=== PATIENT | male | born 1990 | race Caucasian/White ===

== ENCOUNTER 2022-05-23 15:41 | Emergency (ER) | payer BC, SELFPAY ==
[2022-05-23] MEDS ORDERED: Loperamide HCl 2 MG CAP ONE (16:25)
[2022-05-23] MEDS ORDERED: Ondansetron PF 4 MG/2 ML Vial ONE (16:25)
[2022-05-23 16:30] LABS: #Basophils 0.1 10x3/uL (0.0-0.2); #Monocytes 0.8 10x3/uL (0.0-1.1); #Neutrophils 12.4 10x3/uL (1.5-8.4); %Basophils 0.4 % (0.0-2.0); %Eosinophils 0.3 % (0.0-6.0); %Lymphocytes 3.9 % (18.0-47.0); %Monocytes 5.9 % (0.0-10.0); %Neutrophils 89.1 % (40.0-75.0); Hemoglobin 17.8 g/dL (13.5-17.5); Mean Corpuscular HGB CONC 35.2 g/dL (32.0-36.0); Mean Corpuscular Hemoglobin 32.3 pg (27.0-33.0); Mean Corpuscular Volume 91.8 fl (81.2-95.1); Mean Platelet Volume 9.1 fl (7.4-10.4); Platelet Count 203 10x3/uL (150-450); RBC Distribution Width 11.6 % (11.5-14.5); Red Blood Cell (RBC) Count 5.51 10x6/uL (4.32-5.72)
[2022-05-23 16:48] LABS: ALT (SGPT) 144 U/L (8-55); AST (SGOT) 110 U/L (5-34); Albumin 5.2 g/dL (3.5-5.0); Alkaline Phosphatase 85 U/L (40-110); Anion Gap 19 mmol/L (10-20); BUN (Urea Nitrogen) 5 mg/dL (8.9-20.6); Bilirubin, Total 1.4 mg/dL (0.2-1.2); CK (CPK) 117 U/L (30-200); Calc. Creatinine Clearance 0 mL/min (70-130); Calcium 10.3 mg/dL (7.8-10.44); Carbon Dioxide 26 mmol/L (22-29); Chloride 95 mmol/L (98-107); Estimated GFR 119; Globulin 3.4 g/dL (2.4-3.5); Glucose 98 mg/dL (70-105); Lipase 12 U/L (8-78); Potassium 3.8 mmol/L (3.5-5.1); Protein, Total 8.6 g/dL (6.0-8.3); Sodium 136 mmol/L (136-145)
[2022-05-23] MEDS ORDERED: THIAMINE HCL IV SCH (17:00)
[2022-05-23] MEDS ORDERED: MULTIVITAMINS IV SCH (17:00)
[2022-05-23] MEDS ORDERED: FOLIC ACID IV SCH (17:00)
[2022-05-23] MEDS ORDERED: [UNRECOGNIZED DRUG - OTHER] IV SCH (17:00)
[2022-05-23 17:53] LABS: Bilirubin Neg (Negative); Blood, Urine Negative (Negative); Clarity Clear (Clear); Glucose, Urine (Dipstick) Normal (Negative); Ketone, Urine 50 mg/dL (Negative); Leukocyte Negative (Negative); Nitrite Negative (Negative); Protein, Urine (Dipstick) Negative (Neg-Trace); Specific Gravity, Urine 1.005 (1.002-1.036); Urobilinogen Normal mg/dL (Less than 2)
== END 2022-05-23 18:21 | disposition home or self-care (01) ==
LOC: CSHERS 15:41
DX: E86.0 Dehydration (principal); F10.239 Alcohol dependence with withdrawal, unspecified; F17.290 Nicotine dependence, other tobacco product, uncomplicated
CPT/HCPCS: 71045; 80053; 81003; 82550; 83605; 83690; 84484; 85025; 93005; 96361; 96365; 96375; J2405; J3411; J7042